=== PATIENT | female | born 1985 | race Caucasian/White ===

== ENCOUNTER 2024-01-10 15:25 | Emergency (ER) | payer BC, OTHER, SELFPAY ==
--- NOTE | 2024-01-10 15:38 | ED.FEVER ---
HPI - Fever General Chief Complaint: Fever Stated Complaint: FEVER Time Seen by Provider: 01/10/24 15:38 Mode of arrival: ambulatory Limitations: no limitations History of Present Illness HPI Narrative: 38-year-old female who who is 6 weeks presents with concern for fever and headache for 7 days intermittently. Reports she has been taking Tylenol to reduce her fever. She reports generalized body aches, occasional cough. She reports some nausea without vomiting. She denies abdominal pain, dysuria, frequency, urgency, runny nose, stuffy nose, vaginal discharge, vomiting, breast tenderness warmth, redness, swelling. She reports her incision looks normal. She denies vision changes, extremity swelling. MD elicited complaint: fever Related Data Home Medications Medication Instructions Recorded Confirmed No Home Medications 01/10/24 01/10/24 Allergies Allergy/AdvReac Type Severity Reaction Status Date / Time amoxicillin Allergy Unknown Verified 01/10/24 15:40 Review of Systems Review of Systems: CONSTITUTIONAL: Reports malaise, sweats, fever. EYES: Denies visual changes, redness, or discharge. ENT: Reports rhinorrhea. Denies congestion, sinus pain, otalgia or sore throat. CARDIOVASCULAR: Denies chest pain, palpitations, or edema. RESPIRATORY: Reports occasion cough. Denies dyspnea. GASTROINTESTINAL: Denies abdominal pain, vomiting, diarrhea, bloody, or mucous stools. Reports nausea GENITOURINARY: Denies vaginal discharge, dysuria or hematuria. SKIN: Denies rash or itching. MUSCULOSKELETAL: Reports myalgia. NEUROLOGIC: Denies numbness, weakness. Reports headache. All systems reviewed & are unremarkable except as noted in HPI and below [facility] Comments At time of signature, agree with nursing past medical, surgical, social and family history. There is no relevant family history pertinent to the presenting complaint Exam Narrative: GENERAL: Nontoxic-appearing and in no acute distress. HEAD: Normocephalic, atraumatic. EYES: PERRLA, sclera clear, and EOMI. No nystagmus. ENT: Nares clear, turbinates pink, no rhinorrhea or epistaxis. Mucous membranes moist. TM pearly almaguer with sharp light reflex bilaterally; no tragal tenderness. Oropharynx without erythema or lesions. Tonsils not enlarged and without exudate. NECK: Supple. No lymphadenopathy. CHEST: No respiratory distress. Clear to auscultation. No bony deformities, no asymmetry. Speaks in full sentences. HEART: Regular rate and rhythm. No murmur heard. Normal peripheral pulses. ABDOMEN: Soft, nontender, nondistended, normal active bowel sounds, no palpable masses. EXTREMITIES: Normal range of motion. No edema. Normal strength and sensation. SKIN: Warm, dry, no visible rash. incision is well approximated, with no erythema, edema, drainage. Bilateral breasts have no redness, warmth, tenderness, edema NEURO: Alert and oriented x3. No focal deficits. Cranial nerves II through XII grossly intact PSYCH: Normal mood and affect Course Course Emergency Course: Patient is aware of, understands and agrees to be transferred to the ED. Patient agrees to proceed directly to the emergency department. Portions of this record may have been created with voice recognition software Level of Care: Express Care Visit Vital Signs Vital signs: Reviewed. Transfer Transfered to: [facility] Transportation: Other (private vehicle) Transfer rationale: fever for 7 days, 6 weeks MDM - Fever MDM Narrative Medical decision making narrative: Exam findings and patient history warrant further evaluation the emergency room. Patient is nontoxic appearing and in no acute distress Critical Care Time Critical Care Time Critical Care Time: No Discharge Plan Discharge Clinical Impression: fever Patient Disposition: Acute Care Hospital Condition: Stable Prescriptions: No Action No Home Medication
[2024-01-10 15:40] VITALS: BP 114/70; PULSE 118; RESP 16; TEMP 37.4; O2SAT 100
[2024-01-10 15:47] VITALS: RESP 16; O2SAT 100
[2024-01-10 15:56] LABS: EDSTREPNEGPOS1 Presumptive Negative; EDUAAPPEAR Clear; EDUABILI Negative; EDUABLOOD Negative; EDUACOLOR1 Dark; EDUAGLUCOSE Negative; EDUAKETONE Negative; EDUALEUKO Negative; EDUANITRATE Negative; EDUAPH 5.5; EDUAPROTEIN Trace; EDUAUROBILI 0.2
[2024-01-10 16:08] LABS: EDINFLUASCREEN Negative; EDINFLUBSCREEN Negative
== END 2024-01-10 16:14 | disposition short-term general hospital (02) ==
PROVIDERS: Emergency Provider Nurse Practitioner
DX: O86.4 Pyrexia of unknown origin following delivery (principal); Z20.822 Contact with and (suspected) exposure to COVID-19
CPT/HCPCS: 36416; 81003; 86308; 87081; 87426; 87804; 87880; 99213; G0463

== ENCOUNTER 2024-01-10 16:25 | Emergency (ER) | payer BC, OTHER, SELFPAY ==
--- NOTE | ~2024-01-10 | XR_ITS ---
XR chest 1V portable Ordering provider: Anitha Garcia MD History: 38 years Female with . Fever X 5DAYS. CSECTION 5 WKS AGO . Comparison: None. FINDINGS: MEDIASTINUM: The cardiac silhouette is not enlarged. LUNGS: No effusions or pneumothorax. Opacification the right upper lobe suggestive of pneumonia. Foll ow-up to resolution is advised to exclude underlying mass. OTHER: No free air under the diaphragm. IMPRESSION: Right upper lobe pneumonia. Reviewed, dictated and finalized at location A. IMPRESSION: Right upper lobe pneumonia.
[2024-01-10 16:26] VITALS: BP 104/69; PULSE 112; RESP 18; TEMP 37.1; O2SAT 99
[2024-01-10] MEDS: SODIUM CHLORIDE 0.9% IV 1,000 ML 999 ML IV CONT (16:50)
[2024-01-10 17:00] LABS: Basophils Percent Auto 0.4 % (0.2-1.2); Eosinophils Percent Auto 0.2 % (0-4.4); Hematocrit 35.7 % (37.0-47.0); Hemoglobin 12.2 g/dL (12.0-15.0); Immature Granulocyte Absolute 0.04 K/mm3 (0.00-0.031); Immature Granulocyte Percent A 0.4 % (0-0.5); Lymphocytes Percent Auto 8.3 % (18.3-44.2); Mean Corpuscular HGB Conc 34.2 g/dl (32-36); Mean Corpuscular Hemoglobin 31.1 pg (26-34); Mean Corpuscular Volume 91.1 fl (80-100); Mean Platelet Volume 9.2 fl (7.4-10.4); Monocytes Absolute Auto 0.8 K/mm3 (0.1-0.6); Monocytes Percent Auto 7.6 % (2.6-8.5); Neutrophils Percent Auto 83.1 % (45.5-73.1); Platelet Count Result 182 k/mm3 (150-375); Red Blood Count 3.92 M/mm3 (4.2-5.4); Red Cell Distribution Width 11.3 % (11.5-14.5); White Blood Count 10.8 K/mm3 (4.5-10.0)
--- NOTE | 2024-01-10 17:06 | ED.FEVER ---
HPI - Fever General Chief Complaint: Fever Stated Complaint: PP fever Time Seen by Provider: 01/10/24 16:34 History of Present Illness HPI Narrative: Patient is a 38-year-old female who presents to the emergency department this afternoon sent in from an urgent care due to concern for fever of unknown origin. Patient states that she has been having fevers of up to 100? F Sunday. Patient is 6 weeks . She is currently complaining of a headache that she has had for the past few days, mild and body aches. Denies any urinary symptoms, any cough or shortness of breath, any chest pain, any abdominal pain and denies any vaginal bleeding or discharge. No additional symptoms or concerns at this time. Patient had a rapid COVID swabs was negative and Monospot test was negative. Urine was also obtained at urgent care and was noted to be normal. Related Data Home Medications Medication Instructions Recorded Confirmed vitamins no.119-iron 1 tablet PO DAILY 01/10/24 01/10/24 fumarate 29 mg-folic acid 1 mg tablet ([id number]) Allergies Allergy/AdvReac Type Severity Reaction Status Date / Time amoxicillin Allergy Unknown Verified 01/10/24 16:41 Review of Systems Review of Systems: All systems are reviewed and are negative unless stated otherwise in the HPI. Exam Narrative: General: Alert, awake, afebrile, in no acute distress. HEENT: PERRL, no rhinorrhea, no post nasal drip, oropharynx clear. Cardiovascular: Tachycardic with regular rhythm, no murmurs, rubs or gallops, no peripheral edema. Respiratory: Clear to auscultation bilaterally, no tachypnea, no wheezing, no rhonchi, no rubs, no respiratory distress. Abdomen: Soft, nontender, nondistended, no rebound, no guarding, no peritoneal signs. Musculoskeletal: No joint swelling or deformity, normal muscle tone. Skin: No rashes or petechia, no signs of infection. Neurological: Alert and oriented to person, place, and time. Follows all commands. No focal deficits, speech is clear and fluent. Course Vital Signs Vital signs: Vital Signs Temperature 98.7 F 01/10/24 16:26 Pulse Rate 112 H 01/10/24 16:26 Respiratory Rate 18 01/10/24 16:26 Blood Pressure 104/69 01/10/24 16:26 Pulse Oximetry 99 01/10/24 16:26 Oxygen Delivery Room Air 01/10/24 16:26 Temperature 98.7 F 01/10/24 16:26 Pulse Rate 110 H 01/10/24 18:30 Respiratory Rate 16 01/10/24 18:30 Blood Pressure 135/75 01/10/24 18:30 Pulse Oximetry 100 01/10/24 18:30 Oxygen Delivery Room Air 01/10/24 16:26 MDM - Fever MDM Narrative Medical decision making narrative: The patient was evaluated by myself in the emergency department. History is obtained from patient who is an independent historian and physical exam was performed. External medical records were reviewed at this time. IV was established and pertinent tests were ordered. Patient was administered a 1 L IV fluid bolus with normal saline. Laboratory results obtained revealing no acute process. Imaging studies obtained included CXR which was independently interpreted by me revealing right upper lobe pneumonia, which is pending final radiology interpretation. Patient was administered 100 mg of oral doxycycline at this and she was informed that she will be provided with a script to take for the next 5 days. Patient does have an allergy to amoxicillin. Differential diagnosis considerations include acute viral syndrome, COVID infection, pneumonia, urinary tract infection, and retained products of conception. Comorbidities impacting this visit include none. I have evaluated and discussed social determinants of health with the patient that could potentially impact subsequent diagnosis and treatment plans. On repeat assessment of the patient, reevaluation revealed that the patient is doing well and is in no acute distress. Patient symptoms have improved since she arrived to our emergency departm
[2024-01-10 17:22] LABS: Albumin Level 4.6 g/dL (3.5-5.1); Alkaline Phosphatase 106 U/L (38-126); Aspartate Amino Transferase 24 U/L (14-36); Bilirubin,Total 0.6 mg/dL (0.2-1.3); Blood Urea Nitrogen 13 mg/dL (7-17); Carbon Dioxide 24 mmol/L (22-30); Estimated CRCL calculation 99 ml/min; Estimated Glomerular Filt Rate > 60; Glucose 130 mg/dL (65-110)
[2024-01-10 17:30] LABS: Alanine Aminotransferase 26 U/L (6-35); Anion Gap 10 mmol/L (4-12); Chloride 105 mmol/L (98-107); Potassium 3.5 mmol/L (3.4-5.0); Sodium 139 mmol/L (137-145)
[2024-01-10 17:36] LABS: Influenza A QL RT-PCR Negative (Negative); Influenza B QL RT-PCR Negative (Negative); RSV RNA, RT-PCR Negative (Negative); SARS-CoV-2 RNA PCR Negative (Negative)
[2024-01-10 17:39] LABS: Appearance Urine Clear (Clear); Bacteria Urine None Seen /hpf; Bilirubin Urine Negative (Negative); Blood Urine Negative (Negative); Color Urine Yellow (Yellow); Glucose Urine UA Negative (Negative); Ketones Urine Negative (Negative); Leukocyte Esterase Ur Trace LEU/UL (Negative); Nitrate Urine Negative (Negative); Non Pathogenic Casts 0-2; Protein Urine Negative (Negative); RBC Urine 0-2 /hpf (0-2); Specific Grav Ur 1.013 (1.001-1.035); Squamous Epithelial Cell Urine None Seen /hpf (Few); Urobilinogen Urine 0.2 mg/dL (<2.0); WBC Urine 0-5 /hpf (0-3)
[2024-01-10 17:40] LABS: Add Urine Microscopic? YES
[2024-01-10 17:57] LABS: SPREG INTERNAL CONTROL Positive; Serum Qual hCG Negative
[2024-01-10 18:30] VITALS: BP 135/75; PULSE 110; RESP 16; O2SAT 100
[2024-01-10] MEDS: DOXYCYCLINE HYCLATE 100 MG TABLET PO (18:41)
[2024-01-10 18:50] VITALS: BP 135/70; PULSE 110; RESP 16; O2SAT 100
== END 2024-01-10 18:50 | disposition home or self-care (01) ==
PROVIDERS: Emergency Provider Emergency Medicine
DX: O99.53 Diseases of the respiratory system complicating the puerperium (principal); J18.9 Pneumonia, unspecified organism; Z20.822 Contact with and (suspected) exposure to COVID-19
CPT/HCPCS: 36415; 36416; 71045; 80053; 81001; 81003; 83605; 83735; 84703; 85025; 86308; 87081; 87426; 87637; 87804; 87880; 96360; 99283; A9270; J7030

== ENCOUNTER 2024-01-13 10:37 | Emergency (ER) | payer BC, OTHER, SELFPAY ==
[2024-01-13 10:55] VITALS: O2SAT 100
[2024-01-13 10:56] VITALS: BP 124/89; PULSE 83; RESP 20; O2SAT 100
[2024-01-13] MEDS: KETOROLAC 30 MG/ML VIAL (*BKC) IV PUSH (11:07)
[2024-01-13 11:11] LABS: Basophils Percent Auto 0.4 % (0.2-1.2); Eosinophils Absolute Auto 0.1 K/mm3 (0-0.3); Hematocrit 33.9 % (37.0-47.0); Hemoglobin 11.5 g/dL (12.0-15.0); Immature Granulocyte Absolute 0.03 K/mm3 (0.00-0.031); Immature Granulocyte Percent A 0.4 % (0-0.5); Lymphocytes Absolute Auto 1.42 K/mm3 (0.9-3.2); Lymphocytes Percent Auto 20.5 % (18.3-44.2); Mean Corpuscular HGB Conc 33.9 g/dl (32-36); Mean Corpuscular Hemoglobin 30.9 pg (26-34); Mean Corpuscular Volume 91.1 fl (80-100); Mean Platelet Volume 8.9 fl (7.4-10.4); Monocytes Absolute Auto 0.5 K/mm3 (0.1-0.6); Monocytes Percent Auto 6.6 % (2.6-8.5); Neutrophils Absolute Auto 4.9 K/mm3 (1.3-6.7); Neutrophils Percent Auto 71.1 % (45.5-73.1); Platelet Count Result 262 k/mm3 (150-375); Red Blood Count 3.72 M/mm3 (4.2-5.4); Red Cell Distribution Width 11.1 % (11.5-14.5); White Blood Count 6.9 K/mm3 (4.5-10.0)
--- NOTE | 2024-01-13 11:18 | ED.GENADULT ---
HPI - General Adult General Chief complaint: Upper Respiratory Infection Stated complaint: PNEUMONIA FEELS WORSE Time Seen by Provider: 01/13/24 10:53 History of Present Illness HPI narrative: Patient is a 38-year-old female who presents ER with concerns of worsening pneumonia. On 01/10/2024 she was diagnosed with right upper lobe pneumonia and was placed on doxycycline. She reports that her chills and fevers have since gone away and she thought she was getting better but today she started having pain in her right side/ upper back urine breathing. She is not taking any pain medication. No hemoptysis. No exertional dyspnea. Related Data Home Medications Medication Instructions Recorded Confirmed vitamins no.119-iron 1 tablet PO DAILY 01/10/24 01/10/24 fumarate 29 mg-folic acid 1 mg tablet (-[id number]) Allergies Allergy/AdvReac Type Severity Reaction Status Date / Time amoxicillin Allergy Unknown Verified 01/13/24 10:56 Review of Systems Review of Systems: All systems reviewed & are unremarkable except as noted in HPI and below Constitutional: Constitutional: Reports no additional constitutional complaints ENT: Reports system reviewed and no additional complaints, except as documented Cardiovascular: Cardiovascular: Reports no additional cardiovascular complaints Respiratory: Respiratory: Reports no additional respiratory complaints Gastrointestinal: Gastrointestinal: Reports no additional gastrointestinal complaints Course Course Emergency Course: Patient resting comfortably. Mild improvement with Toradol. Patient without hypoxia/tachycardia/ tachypnea. No hemoptysis. PE felt unlikely and pleurisy seems much more likely given her no pneumonia. Discharge home with anti-inflammatories and reassurance. Vital Signs Vital signs: Vital Signs Pulse Oximetry 100 01/13/24 10:55 Oxygen Delivery Room Air 01/13/24 10:55 Pulse Rate 86 01/13/24 12:54 Respiratory Rate 01/13/24 12:54 Blood Pressure 107/77 01/13/24 12:54 Pulse Oximetry 98 01/13/24 12:54 Oxygen Delivery Room Air 01/13/24 10:55 Medical Decision Making Vital Signs Vital Signs: Vital Signs Pulse Oximetry 100 01/13/24 10:55 Oxygen Delivery Room Air 01/13/24 10:55 Pulse Rate 86 01/13/24 12:54 Respiratory Rate 20 01/13/24 12:54 Blood Pressure 107/77 01/13/24 12:54 Pulse Oximetry 98 01/13/24 12:54 Oxygen Delivery Room Air 01/13/24 10:55 Lab Data 01/13/24 11:05 01/13/24 11:05 Labs: Lab Results 01/13/24 Range/Units 11:05 WBC 6.9 (4.5-10.0) K/mm3 RBC 3.72 L (4.2-5.4) M/mm3 Hgb 11.5 L (12.0-15.0) g/dL Hct 33.9 L (37.0-47.0) % MCV 91.1 (80-100) fl MCH 30.9 (26-34) pg MCHC 33.9 (32-36) g/dl RDW 11.1 L (11.5-14.5) % Plt Count 262 (150-375) k/mm3 MPV 8.9 (7.4-10.4) fl Immature Gran % (Auto) 0.4 (0-0.5) % Neut % (Auto) 71.1 (45.5-73.1) % Lymph % (Auto) 20.5 (18.3-44.2) % Rowan % (Auto) 6.6 (2.6-8.5) % Eos % (Auto) 1.0 (0-4.4) % Baso % (Auto) 0.4 (0.2-1.2) % Lymph # (Auto) 1.42 (0.9-3.2) K/mm3 Rowan # (Auto) 0.5 (0.1-0.6) K/mm3 Eos # (Auto) 0.1 (0-0.3) K/mm3 Baso # (Auto) 0.0 (0.0-0.1) K/mm3 Abs Immat Gran (auto) 0.03 (0.00-0.031) K/mm3 Absolute Neuts (auto) 4.9 (1.3-6.7) K/mm3 Absolute Nucleated RBC 0.000 (0.0-0.012) K/mm3 Nucleated RBC % 0.0 (0.0-0.2) % Sodium 141 (137-145) mmol/L Potassium 3.5 (3.4-5.0) mmol/L Chloride 109 H (98-107) mmol/L Carbon Dioxide 21 L (22-30) mmol/L Anion Gap 11 (4-12) mmol/L BUN 7 D (7-17) mg/dL Creatinine 0.40 L (0.7-1.0) mg/dL Estim Creat Clear Calc 142 ml/min Estimated GFR > 60 (59 - ) Glucose 89 (65-110) mg/dL Calcium 8.8 (8.4-10.2) mg/dL Total Bilirubin 0.8 (0.2-1.3) mg/dL AST 20 (14-36) U/L ALT 28 (6-35) U/L Alkaline Phosphatase 104 (38-126) U/L Total Protein 8.0 (6.3-8
[2024-01-13 11:21] VITALS: PULSE 86; RESP 21
[2024-01-13] MEDS: IPRATROPIUM 0.5 MG/ALBUTEROL SULFATE 2.5 MG AMPUL.NEB 3 ML INHALATION (11:21)
[2024-01-13 11:22] LABS: Alanine Aminotransferase 28 U/L (6-35); Albumin Level 4.2 g/dL (3.5-5.1); Alkaline Phosphatase 104 U/L (38-126); Anion Gap 11 mmol/L (4-12); Aspartate Amino Transferase 20 U/L (14-36); Bilirubin,Total 0.8 mg/dL (0.2-1.3); Blood Urea Nitrogen 7 mg/dL (7-17); Calcium 8.8 mg/dL (8.4-10.2); Carbon Dioxide 21 mmol/L (22-30); Chloride 109 mmol/L (98-107); Estimated CRCL calculation 142 ml/min; Estimated Glomerular Filt Rate > 60; Glucose 89 mg/dL (65-110); Potassium 3.5 mmol/L (3.4-5.0); Sodium 141 mmol/L (137-145)
[2024-01-13 11:32] VITALS: PULSE 93; RESP 17
[2024-01-13 12:54] VITALS: BP 107/77; PULSE 86; RESP 20; O2SAT 98
[2024-01-13 13:12] VITALS: BP 110/72; PULSE 93; RESP 16; O2SAT 99
== END 2024-01-13 13:13 | disposition home or self-care (01) ==
PROVIDERS: Emergency Provider Emergency Medicine
DX: R09.1 Pleurisy (principal); J18.9 Pneumonia, unspecified organism
CPT/HCPCS: 36415; 80053; 85025; 87040; 94640; 96374; 99284; J1885